=== PATIENT | male | born 1945 | race Caucasian/White ===

== ENCOUNTER 2021-10-29 14:17 | Emergency (ER) | payer BC, SELFPAY ==
[2021-10-29] VITALS (11 sets, daily range): BP systolic 133–163; BP diastolic 70–117; PULSE 69–80; RESP 12–21; TEMP 36.1–36.8; O2SAT 95–100
--- NOTE | ~2021-10-29 | XR_ITS ---
EXAMINATION: XR chest 2V DATE: 10/29/2021 14:47 INDICATION: Chest pain. TECHNIQUE: Frontal and lateral views of the chest were obtained. COMPARISON: Chest 2 views 12/05/2019 FINDINGS: There is mild atelectasis in left lower lung zone. No pleural effusion or pneumothorax. The heart size is normal. There is a large hiatal hernia. Surgical clips in the right upper quadrant are likely from cholecystectomy. IMPRESSION: 1. Mild atelectasis in left lower lung zone. 2. Large hiatal hernia. Reviewed, dictated and finalized at location A. [employer] SUPPORT SPECIALIST
--- NOTE | 2021-10-29 14:19 | ECG_ITS ---
Measurements Intervals [place] Rate: 73 P: 23 OR: 186 QRS: -3 QRSD: 102 T: 16 QT: 348 QTc: 386 Interpretive Statements SINUS RHYTHM VENTRICULAR PREMATURE COMPLEXES DELAYED PRECORDIAL R/S TRANSITION BORDERLINE T WAVE ABNORMALITY- INFERIOR LEADS BASELINE ARTIFACT- I, II, AVR, AVL BORDERLINE ECG Electronically Signed On 10-29-2021 15:49:51 [employer]ONDANT MACHINE OPERATOR by Deion Vera D.O.
[2021-10-29 14:36] LABS: Basophils Percent Auto 0.5 % (0.2-1.2); Eosinophils Absolute Auto 0.2 K/mm3 (0-0.3); Hematocrit 45.6 % (42.0-52.0); Immature Granulocyte Absolute 0.01 K/mm3 (0.00-0.031); Immature Granulocyte Percent A 0.2 % (0-0.5); Lymphocytes Absolute Auto 1.49 K/mm3 (0.9-3.2); Lymphocytes Percent Auto 26.4 % (18.3-44.2); Mean Corpuscular HGB Conc 32.9 g/dl (32-36); Mean Corpuscular Hemoglobin 30.7 pg (26-34); Mean Corpuscular Volume 93.3 fl (80-100); Mean Platelet Volume 9.3 fl (7.4-10.4); Monocytes Absolute Auto 0.7 K/mm3 (0.1-0.6); Monocytes Percent Auto 12.2 % (2.6-8.5); Neutrophils Absolute Auto 3.3 K/mm3 (1.3-6.7); Neutrophils Percent Auto 57.7 % (45.5-73.1); Platelet Count Result 263 k/mm3 (150-375); Red Blood Count 4.89 M/mm3 (4.6-6.20); Red Cell Distribution Width 14.2 % (11.5-14.5); White Blood Count 5.7 K/mm3 (4.5-10.0)
[2021-10-29 14:45] LABS: Prothrombin Time 13.2 Seconds (11.1-14.7)
[2021-10-29 14:46] LABS: Partial Thromboplastin Time 29.6 SECONDS (22.3-36.8)
[2021-10-29 14:47] LABS: Alanine Aminotransferase 32 U/L (4-50); Albumin Level 4.2 g/dL (3.5-5.1); Alkaline Phosphatase 80 U/L (38-126); Anion Gap 3 mmol/L (8-16); Aspartate Amino Transferase 31 U/L (17-59); Bilirubin,Total 0.6 mg/dL (0.2-1.3); Blood Urea Nitrogen 20 mg/dL (9-20); Carbon Dioxide 27 mmol/L (22-30); Chloride 106 mmol/L (98-107); Estimated CRCL calculation 61 ml/min; Estimated Glomerular Filt Rate 59; Glucose 113 mg/dL (65-110); Lipase 44 U/L (23-300); Potassium 4.1 mmol/L (3.4-5.0); Sodium 136 mmol/L (137-145)
[2021-10-29 14:59] LABS: Troponin I < 0.012 ng/mL (0.000-0.034)
--- NOTE | 2021-10-29 16:11 | ED.ARRPALP ---
HPI - Arrhythmia/Palpitations General Chief Complaint: Arrhythmia/Palpitations Stated Complaint: irregular heartbeat Time Seen by Provider: 10/29/21 16:10 Source: patient Mode of arrival: ambulatory Limitations: no limitations History of Present Illness HPI narrative: Patient is a 75-year-old male with a history of hypertension, hyperlipidemia, BPH, acid reflux, presenting for evaluation of lightheadedness, general malaise. Patient states he felt unwell earlier this morning for approximately an hour and a half in which he felt diaphoretic, lightheaded. Patient denies any dizziness, vision changes. States he did not pass out or lose consciousness. Patient states he checked his heart rate on his heart monitor and it was in the 30s. Patient states that he was able to drive his to an appointment for her influenza vaccine, when he arrived at the appointment at the physician's office, he explained to them that he was not feeling well, they felt that his pulse was in the 30s and irregular thus they encouraged him to come to the emergency department for assessment. Patient currently reports chest pain over the left chest, but is reproducible when he presses his chest. Patient states he believes this is musculoskeletal. He denies any acute onset of ripping or tearing flank pain to the shoulders, middle or lower back. No flank pain. No weakness or numbness in the bilateral lower extremities. Patient states that initially he attributed his symptoms to the start of a new antacid medication,Myrbetriq, which she started yesterday. Patient states his primary care physician told him to discontinue that medication. Patient denies any leg swelling or calf pain. No recent car or air travel. No history of coagulopathy. No recent surgery or immobility. Patient's chainman is Dr. Vera. Patient takes diltiazem, states that was recently increased to 60 mg twice daily. Denies other recent medication changes aside from the antacid medication. Related Data Home Medications Medication Instructions Recorded Confirmed [id number]-vit K tablet PO 12/05/19 10/27/21 [Adults Multivitamin] turmeric root extract 500 mg 500 mg PO DAILY 12/18/19 10/27/21 capsule Allergies Allergy/AdvReac Type Severity Reaction Status Date / Time codeine [Guaifen-C] Allergy Unknown hyperventil Verified 10/29/21 16:14 ation/dizzy tristan diphenhydramine Allergy Unknown Other Verified 10/29/21 16:14 [From Benadryl] Review of Systems Review of Systems: CONSTITUTIONAL: Denies fever, chills, or sweats. EYES: Denies visual changes, redness, or discharge. ENT: Denies rhinorrhea, congestion, sore throat, or otalgia. CARDIOVASCULAR: Reports mild chest pain over left chest, denies current palpitations, or edema. RESPIRATORY: Denies cough or dyspnea. GASTROINTESTINAL: Denies abdominal pain, nausea, vomiting, or diarrhea. GENITOURINARY: Denies dysuria or hematuria. SKIN: Denies rash or itching. MUSCULOSKELETAL: Denies back pain, joint pain, or myalgia. NEUROLOGIC: Denies headache, numbness, or weakness. PSYCHIATRIC: Denies anxiety or depression. [facility] Past Medical History Medical History (Updated 10/29/21 @ 17:51 by Katarina Montgomery MD) BPH (benign prostatic hyperplasia) Gastric ulcer, unspecified as acute or chronic, without hemorrhage or perforation Supraventricular tachycardia Surgical History Surgical History History of appendectomy Hx of cholecystectomy Family History Family History Other No family history of cardiovascular disease Social History Social History Smoking packs per day: 0 Smoking cigarettes per day: 0.0 Smoking status: Former smoker Alcohol intake: never Gender identity (if verbalized by the patient): Male Exam Narrative: GENERAL: Alicia
[2021-10-29 17:46] LABS: Troponin I < 0.012 ng/mL (0.000-0.034)
--- NOTE | 2021-11-09 15:41 | WPDHOLTEREM ---
Holter/Event Monitor Holter/Event Monitor Date of procedure: 10/29/21 Holter/Event Procedure: 48 Hr Holter Monitor Indications: Bradycardia Conclusion: 1. 48 hour holter monitor on 10/29/21. 2. Predominant rhythm is sinus rhythm. HR range 44-109 bpm; average HR 77 bpm. 3. There are 678 premature supraventricular complexes, 87 supraventricular couplets. There are 126 episodes of atrial tachycardia, fastest at 167 bpm and longest lasting 15 beats. 4. There are 3,004 premature ventricular complexes, 1,625 ventricular couplets, 59 ventricular triplets, 11,061 ventricular bigeminy, and 769 ventricular trigeminy. No ventricular tachycardia. 5. One pause greater than 2 seconds at 2.1 second at 10:36. 6. No symptoms available for correlation.
== END 2021-10-29 23:42 | disposition left against medical advice (07) ==
PROVIDERS: Emergency Medicine; Emergency Provider Emergency Medicine; PCP Family Medicine
DX: R00.2 Palpitations (principal); R00.1 Bradycardia, unspecified; I10 Essential (primary) hypertension; E78.5 Hyperlipidemia, unspecified; E78.2 Mixed hyperlipidemia; Z87.891 Personal history of nicotine dependence
CPT/HCPCS: 36415; 71046; 80053; 83690; 84484; 85025; 85610; 85730; 93005; 93225; 93226; 99284

== ENCOUNTER 2022-04-26 11:51 | Outpatient (CLI) | payer BC, SELFPAY ==
--- NOTE | 2022-04-26 12:12 | ECHO_ITS ---
Patient Info Name: Chandra Gorman Age: 76 years : 1945 Gender: Male Ht: 70 in Wt: 245 lbs BSA: 2.38 m2 HR: 92 bpm BP: 143 / 93 mmHg Technical Quality: Poor Exam Date: 04/26/2022 12:47 PM Exam Location: [facility] Patient Status: Outpatient Admit Date: 04/26/2022 Staff Ordering Physician: Deion Vera DO [employer] Supervisor: Mer Guidry RDCS Attending Provider: Deion Vera DO Referring Physician: Chuy SILVA; Exam Type: CA echo dop color flow w con Study Info Indications I47.1 - Supraventricular tachycardia Complete two-dimensional, color flow and Doppler transthoracic echocardiogram is performed with contrast to opacify the left ventricle and to improve the deliniation of the left ventricle endocardial borders. Contrast/Agitated Saline Contrast/Ag. Saline: Definity Amount: 7.00 ml Administered By: Mer Guidry RDCS New IV Access: Inner Forearm and Left Site Condition: No extravasation, Site dressing applied and IV removed Reason for Poor Study: patient body habitus Summary 1. Left ventricular chamber dimension is normal. 2. Definity contrast administered improved wall motion interpretation. 3. Left ventricular systolic function is normal, estimated at 55-60%. 4. There is moderate asymmetric septal increased left ventricular wall thickness. 5. The left ventricular diastolic function is grade I diastolic dysfunction. 6. E/e' 10 is mildly elevated. 7. No pulmonary hypertension, estimated pulmonary arterial systolic pressure is 19 mmHg. Left Ventricle Definity contrast administered improved wall motion interpretation. E/e' 10 is mildly elevated. Left ventricular chamber dimension is normal. Left ventricular systolic function is normal, estimated at 55-60%. There is moderate asymmetric septal increased left ventricular wall thickness. The left ventricular diastolic function is grade I diastolic dysfunction. Right Ventricle Right ventricular chamber dimension is normal. Right ventricular systolic function is normal. Left Atria Left atrial chamber dimension is normal. Right Atria Right atrial chamber dimension is normal. Aortic Valve The aortic valve is trileaflet. There is no aortic valve stenosis. There is no aortic valve regurgitation. Pulmonic Valve There is no pulmonic regurgitation. Mitral Valve There is no mitral valve stenosis. There is no mitral valve regurgitation. Tricuspid Valve There is no tricuspid valve regurgitation. No pulmonary hypertension, estimated pulmonary arterial systolic pressure is 19 mmHg. Pericardium/Pleural There is no pericardial effusion. Inferior Vena Cava Normal inferior vena cava with >50% collapse upon inspiration consistent with normal right atrial pressure, 5 mmHg. Aorta The aortic root size at the sinus of Valsalva is normal. Left Ventricular Outflow Tract Name Value Normal LVOT 2D LVOT Diameter 2.05 cm LVOT Doppler LVOT Peak Gradient 3 mmHg LVOT Mean Gradient 2 mmHg LVOT VTI 19.
[2022-04-26] MEDS: PERFLUTREN LIPID MICROSPHERES 1.5 ML VIAL DILUTED TO 10 ML TOTAL VOLUME IV PUSH (12:45)
== END 2022-04-26 11:52 | disposition home or self-care (01) ==
PROVIDERS: PCP Family Medicine; Visit Provider Internal Medicine Cardiovascular Disease
DX: I47.1 Supraventricular tachycardia (principal)
CPT/HCPCS: C8929; Q9957

== ENCOUNTER 2024-12-24 10:11 | Outpatient (CLI) | payer BC, SELFPAY ==
[2024-12-24 11:17] LABS: Influenza A QL RT-PCR Positive (Negative); Influenza B QL RT-PCR Negative (Negative); RSV RNA, RT-PCR Negative (Negative); SARS-CoV-2 RNA PCR Negative (Negative)
== END 2024-12-24 10:12 | disposition home or self-care (01) ==
PROVIDERS: PCP Family Medicine; Visit Provider Family Medicine
DX: R50.9 Fever, unspecified (principal); Z20.822 Contact with and (suspected) exposure to COVID-19
CPT/HCPCS: 87637